=== PATIENT | female | born 1980 ===

== ENCOUNTER 2020-11-15 08:11 | Day surgery (SDC) | payer OTHER ==
[~2020-11-15 08:11] MED LIST: ZYRTEC10 M3 PO
== END 2020-11-15 20:25 | disposition home or self-care (01) ==
LOC: CIR.AMB 08:11
PROVIDERS: ATTEND Obstetrics & Gynecology
DX: N84.0 Polyp of corpus uteri (principal); Z20.822 Contact with and (suspected) exposure to COVID-19